=== PATIENT | female | born 1985 | race Caucasian/White ===

== ENCOUNTER 2022-10-16 14:34 | Outpatient (CLI) | payer OTHER ==
[2022-10-16 15:18] LABS: Bilirubin Neg (Negative); Blood, Urine Negative (Negative); Clarity Clear (Clear); Glucose, Urine (Dipstick) Normal (Negative); Ketone, Urine Negative (Negative); Leukocyte Negative (Negative); Nitrite Negative (Negative); Protein, Urine (Dipstick) Negative (Neg-Trace); Urobilinogen Normal mg/dL (Less than 2)
[2022-10-16 15:26] LABS: Hemoglobin 14.3 g/dL (12.0-15.5); Mean Corpuscular HGB CONC 33.8 g/dL (32.0-36.0); Mean Corpuscular Hemoglobin 31.9 pg (27.0-33.0); Mean Corpuscular Volume 94.4 fl (81.6-98.3); Mean Platelet Volume 11.9 fl (7.4-10.4); Platelet Count 332 10x3/uL (150-450); Red Blood Cell (RBC) Count 4.48 10x6/uL (3.90-5.03); White Blood Cell (WBC) Count 6.7 10x3/uL (3.5-10.5)
[2022-10-16 15:38] LABS: BHCG - Serum Negative (NEGATIVE); Pregs Control Background? CLEAR/WHITE (CLR/WHITE); Pregs Control Bar Appear? YES (CONTROL BAR)
== END 2022-10-16 14:35 | disposition home or self-care (01) ==
LOC: CSHLAB 14:34
PROVIDERS: ATTEND Obstetrics & Gynecology
DX: Z01.812 Encounter for preprocedural laboratory examination (principal); N92.0 Excessive and frequent menstruation with regular cycle; N94.6 Dysmenorrhea, unspecified
CPT/HCPCS: 81003; 84703; 85027

== ENCOUNTER 2022-10-20 05:33 | Day surgery (SDC) | payer OTHER ==
[2022-10-18 16:16] VITALS: BMI 25.3
[2022-10-20] MEDS ORDERED: Bupivacaine HCl 0.5%/Epinephrine 1:200,000/PF 30 ml Vial ONE (06:25)
[2022-10-20] MEDS ORDERED: SUGAMMADEX SODIUM 200 MG/2 ML VIAL ONE (06:40)
[2022-10-20] MEDS ORDERED: Dexmedetomidine 200 MCG/2 ML VIAL ONE (06:40)
[2022-10-20] MEDS ORDERED: Ketorolac Tromethamine 30 MG/ML VIAL ONE ×2 (06:42→12:55)
[2022-10-20] MEDS ORDERED: Ondansetron PF 4 MG/2 ML Vial ONE (06:42)
[2022-10-20] MEDS ORDERED: Rocuronium Bromide 10 MG/ML (10ML VIAL) ONE (06:42)
[2022-10-20] MEDS ORDERED: Lidocaine 2% PF 5 ML VIAL ONE ×2 (06:42→07:52)
[2022-10-20] MEDS ORDERED: Dexamethasone 4 mg/ml Vial ONE (06:42)
[2022-10-20] MEDS ORDERED: Fentanyl 100 MCG/2 ML VIAL ONE (06:43)
[2022-10-20] MEDS ORDERED: PROPOFOL 20 ML ONE (06:43)
[2022-10-20] MEDS ORDERED: Clindamycin/D5W 900 mg/50 ml Premix Bag ONE (06:54)
[2022-10-20] MEDS ORDERED: Midazolam HCl 2 mg/2 ml Vial ONE (07:00)
[2022-10-20] MEDS ORDERED: Propofol 1,000 MG/100 ML VIAL IV ONE (07:22)
[2022-10-20] MEDS ORDERED: Scopolamine 1.5 mg/72 hour Patch ONE (07:31)
[2022-10-20] MEDS ORDERED: Meperidine HCl/PF 25 MG/ML VIAL ONE (10:22)
[2022-10-20] MEDS ORDERED: Morphine 2 MG/ML VIAL SLOW IVP PRN (10:59)
[2022-10-20] MEDS ORDERED: Fentanyl 100 MCG/2 ML VIAL SLOW IVP PRN (11:00)
[2022-10-20] MEDS ORDERED: HYDROcodone/Acetaminophen 5/325 mg Tablet PO PRN ×2 (11:00)
[2022-10-20] MEDS ORDERED: Ondansetron PF 4 MG/2 ML Vial IVP PRN (11:00)
[2022-10-20] MEDS ORDERED: Promethazine HCl 25 MG/ML VIAL IVPB PRN (11:00)
[2022-10-20] MEDS ORDERED: Meperidine HCl/PF 25 MG/ML VIAL IV PRN (11:15)
[2022-10-20] MEDS ORDERED: HYDROcodone/Acetaminophen 7.5/325 mg Tablet ONE (11:31)
[2022-10-20] MEDS ORDERED: Ketorolac Tromethamine 30 MG/ML VIAL IVP ONE (13:00)
[2022-10-20 13:04] LABS: Hemoglobin 11.5 g/dL (12.0-15.5)
== END 2022-10-20 13:58 | disposition home or self-care (01) ==
LOC: CSHSDC 05:33
PROVIDERS: ATTEND Obstetrics & Gynecology
PROC: 0UT94ZZ Resection of Uterus, Percutaneous Endoscopic Approach (ICD-10-PCS; principal; 2022-10-20)
DX: N80.03 Adenomyosis of the uterus (principal); N80.00 Endometriosis of the uterus, unspecified; N92.0 Excessive and frequent menstruation with regular cycle; D25.2 Subserosal leiomyoma of uterus; N73.6 Female pelvic peritoneal adhesions (postinfective); N94.6 Dysmenorrhea, unspecified; N93.9 Abnormal uterine and vaginal bleeding, unspecified; Z90.79 Acquired absence of other genital organ(s); Z79.899 Other long term (current) drug therapy; Z88.2 Allergy status to sulfonamides; Z88.1 Allergy status to other antibiotic agents
CPT/HCPCS: 85014; 85018; 88305; 88307; C1776; J1100; J1885; J2001; J2175; J2250; J2405; J2704; J3010; J3490; Q9968